=== PATIENT | male | born 1975 | race Hispanic/Latino ===

== ENCOUNTER → 2019-03-15 | Outpatient (CLI) | payer BC | END | disposition home or self-care (01) | LOC: RAH 10:47 | PROVIDERS: ATTEND Internal Medicine | DX: M54.5 Low back pain (principal) | CPT/HCPCS: 72100 ==

== ENCOUNTER 2019-08-06 11:49 | Inpatient (IN) | payer BC ==
[~2019-08-06] VITALS: Ht 172.7 cm; Wt 106.4 kg
[2019-08-06 12:14] LABS: BASOPHILS % (AUTO) 0.6 % (0.0-5.0); EOSINOPHILS % (AUTO) 1.9 % (0.0-8.0); HEMATOCRIT 26.7 % (42-54); LYMPHOCYTES % (AUTO) 40.4 % (21.0-51.0); MEAN CORPUSCULAR HEMOGLOBIN 19.6 pg (27.0-33.0); MEAN CORPUSCULAR HGB CONC 29.2 g/dL (32.0-36.0); MEAN CORPUSCULAR VOLUME 67.1 fL (79-99); MONOCYTES % (AUTO) 8.7 % (3.0-13.0); PLATELET COUNT (AUTO) 310 K/uL (130-400); RED BLOOD CELL COUNT(AUTO) 3.98 MIL/uL (4.50-6.20); RED CELL DISTRIBUTION WIDTH 18.4 % (11.0-15.5); WHITE BLOOD COUNT (AUTO) 4.7 K/uL (4.8-10.8)
[2019-08-06 12:22] LABS: CREATININE 1.1 mg/dL (0.5-1.5); POTASSIUM 3.4 mmol/L (3.5-5.1)
[2019-08-06 12:29] LABS: ALBUMIN 3.8 g/dL (3.5-5.0); BILIRUBIN,TOTAL 0.3 mg/dL (0.2-1.0); TOTAL PROTEIN, SERUM 7.1 g/dL (6.0-8.3)
[2019-08-06 12:46] LABS: INR 1.01 (0.85-1.15); PARTIAL THROMBOPLASTIN TIME 25.3 SEC (26.3-35.5); PROTHROMBIN TIME 10.9 SEC (9.6-11.6)
[2019-08-06] MEDS ORDERED: IBUPROFEN 200 MG TAB ONE (13:15)
[2019-08-06 13:34] LABS: ALBUMIN 3.9 g/dL (3.5-5.0); BILIRUBIN,DIRECT 0.1 mg/dL (0.0-0.3); BILIRUBIN,TOTAL 0.2 mg/dL (0.2-1.0); TOTAL PROTEIN, SERUM 6.8 g/dL (6.0-8.3)
[2019-08-06] MEDS ORDERED: ACETAMINOPHEN 325 MG TAB PO PRN ×2 (14:00)
[2019-08-06] MEDS ORDERED: ONDANSETRON HCL 4 MG/2 ML VIAL IV PRN (14:00)
[2019-08-06] MEDS ORDERED: HYDRALAZINE HCL 20 MG/ML VIAL IV PRN (14:00)
[2019-08-06] MEDS ORDERED: MORPHINE SULFATE 2 MG/ML 1ML SYG IV PRN (14:00)
[2019-08-06 14:24] LABS: % IRON SATURATION 3.1 % (30-44)
[2019-08-06] MEDS ORDERED: LIDOCAINE HCL-MPF 1% 2ML VIAL IV PRN (14:30)
[2019-08-06] MEDS ORDERED: POTASSIUM CHLORIDE 20 MEQ ERTAB PO PRN (14:30)
[2019-08-06] MEDS ORDERED: POTASSIUM CHLORIDE 10% ELIXIR 20 MEQ/15 ML UDCUP PO PRN (14:30)
[2019-08-06] MEDS ORDERED: POTASSIUM CHLORIDE 10MEQ/100ML 100 ML IV PRN (14:30)
[2019-08-06] MEDS ORDERED: POTASSIUM CHLORIDE 20 MEQ ERTAB PO ONE (15:32)
[2019-08-06] MEDS ORDERED: SODIUM CHLORIDE 0.9% 1000ML 1,000 ML IV ONE (15:33)
[2019-08-06] MEDS ORDERED: COMPOUND IV MISC 1 EACH IVSOLN MISC PRN (17:30)
[2019-08-06] MEDS ORDERED: EPOETIN ALFA 10,000 UNIT/ML VIAL SQ SCH (18:00)
[2019-08-06 18:38] VITALS: BP 139/70
[2019-08-06 19:08] VITALS: BP 127/72
[2019-08-06] MEDS: SODIUM CHLORIDE 0.9% 1000ML 1,000 ML IV SCH (20:03)
[2019-08-06] MEDS ORDERED: OMEP20TA25 PO (20:04)
[2019-08-06] MEDS ORDERED: HYDR200T82 PO (20:04)
[2019-08-06] MEDS ORDERED: ESCI20TA PO (20:04)
[2019-08-06] MEDS ORDERED: ICOS1CAP PO (20:04)
[2019-08-06] MEDS ORDERED: SULF500T8 PO (20:04)
[2019-08-06] MEDS ORDERED: PREG75 PO (20:04)
[2019-08-06] MEDS ORDERED: PRAM0.258 PO (20:04)
[2019-08-06] MEDS ORDERED: AMLO-258 PO (20:04)
[2019-08-06] MEDS ORDERED: LISI40TA4 PO (20:04)
[2019-08-06] MEDS ORDERED: DEXA0.5T2 PO (20:04)
[2019-08-06] MEDS ORDERED: BUSP15 PO (20:04)
[2019-08-06] MEDS: IRON SUCROSE COMPLEX 100 MG in SODIUM CHLORIDE 0.9% 50 ML IV SCH (20:20)
[2019-08-06] MEDS ORDERED: FAMOTIDINE/PF 20 MG/2 ML VIAL IV SCH (21:00)
[2019-08-06 23:04] VITALS: BP 142/77
[2019-08-07] MEDS: SODIUM CHLORIDE 0.9% 1000ML 1,000 ML IV SCH (01:27)
[2019-08-07 03:48] VITALS: BP 139/70
--- NOTE | 2019-08-07 04:37 | NUR ---
BM Pt had an episode of bloody stools.
[2019-08-07 05:36] LABS: BASOPHILS % (AUTO) 0.2 % (0.0-5.0); EOSINOPHILS % (AUTO) 2.7 % (0.0-8.0); HEMATOCRIT 24.1 % (42-54); LYMPHOCYTES % (AUTO) 33.7 % (21.0-51.0); MEAN CORPUSCULAR HEMOGLOBIN 19.2 pg (27.0-33.0); MEAN CORPUSCULAR HGB CONC 28.2 g/dL (32.0-36.0); MEAN CORPUSCULAR VOLUME 68.1 fL (79-99); MONOCYTES % (AUTO) 9.6 % (3.0-13.0); NEUTROPHILS % (AUTO) 53.5 % (40.0-77.0); PLATELET COUNT (AUTO) 263 K/uL (130-400); RED BLOOD CELL COUNT(AUTO) 3.54 MIL/uL (4.50-6.20); RED CELL DISTRIBUTION WIDTH 18.5 % (11.0-15.5); WHITE BLOOD COUNT (AUTO) 5.8 K/uL (4.8-10.8)
[2019-08-07 06:03] LABS: ALBUMIN 3.4 g/dL (3.5-5.0); BILIRUBIN,TOTAL 0.2 mg/dL (0.2-1.0); CREATININE 0.9 mg/dL (0.5-1.5); POTASSIUM 3.6 mmol/L (3.5-5.1); TOTAL PROTEIN, SERUM 6.3 g/dL (6.0-8.3)
--- NOTE | 2019-08-07 06:34 | NUR ---
LAB avionics test technician here to draw type and screen.
[2019-08-07 08:00] VITALS: BP 118/74
[2019-08-07] MEDS ORDERED: PANTOPRAZOLE SODIUM 80 MG in SODIUM CHLORIDE 0.9% 100 ML IV SCH (09:00)
--- NOTE | 2019-08-07 09:47 | NUR ---
i informed ashlee hyde that lab stated pt blood type O- but due to shortage they are going to issue O+ ; she stated to not give at this time and instead repeat H&H and call her with result.
[2019-08-07 10:09] LABS: HEMATOCRIT 24.1 % (42-54)
[2019-08-07] MEDS ORDERED: SODIUM CHLORIDE 0.9% 1000ML 1,000 ML IV SCH (10:15)
[2019-08-07] MEDS ORDERED: METHYLPREDNISOLONE SOD SUCC 125MG/2ML VIAL IVP SCH (10:15)
[2019-08-07] MEDS: IRON SUCROSE COMPLEX 100 MG in SODIUM CHLORIDE 0.9% 50 ML IV SCH (11:26)
--- NOTE | 2019-08-07 11:35 | NUR ---
i spoke to ashlee hyde on the phone and informed her of H&H recheck of 6.9/24.1; i also informed her that pt denies any light headedness or dizzyness at this time; she stated to not give the blood yet and cont to monitor.
--- NOTE | 2019-08-07 11:50 | NUR ---
INITIAL SW spoke with patient. Patient lives with spouse, [address], [phone]. No home services. DME: CPAP. 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 He is able to drive and complete ADL's independently. PCP is Dr. Kamran Drew. Pharmacy is [email or web address] located on [facility] in [place]. DCP is home. Addendum: 08/07/19 at 1152 by LAI LIU SS Amended: Links added.
[2019-08-07 12:00] VITALS: BP 108/69
[2019-08-07] MEDS ORDERED: DEXTROSE 50%-WATER 50 ML DISP.SYRIN IV ONE (12:05)
[2019-08-07 16:00] VITALS: BP 118/75
--- NOTE | 2019-08-07 16:29 | NUR ---
i spoke to dr Marquez about blood transfusion and giving O+ to O - patient and she stated to hold off on giving now and she would speak to her colleagues about treatment and to monitor the H&H in the meantime.
--- NOTE | 2019-08-07 16:53 | NUR ---
i spoke to dr richter on the phone and informed of negative bleeding scan; he stated to order edg and colonoscopy for tomorrow;
[2019-08-07] MEDS ORDERED: PEG 3350/NA SULF,BICARB,CL/KCL 4000 ML SOLN PO SCH (17:00)
[2019-08-07 19:00] VITALS: BP 119/68
[2019-08-07 19:55] LABS: HEMATOCRIT 24.7 % (42-54)
[2019-08-07] MEDS: BUSPIRONE HCL 5 MG TABLET PO SCH (20:57)
[2019-08-07] MEDS: PREGABALIN 75 MG CAPSULE PO SCH (20:58)
[2019-08-07] MEDS: SULFASALAZINE 500 MG TAB.DR PO SCH (20:58)
[2019-08-07] MEDS: HYDROXYCHLOROQUINE SULFATE 200 MG TAB PO SCH (20:58)
[2019-08-07] MEDS: PRAMIPEXOLE DI-HCL 0.25 MG TABLET PO SCH (20:59)
[2019-08-07] MEDS: AMLODIPINE BESYLATE 5 MG TAB PO SCH (21:00)
[2019-08-08] VITALS (21 sets, daily range): BP systolic 98–145; BP diastolic 52–83
--- NOTE | 2019-08-08 02:00 | NUR ---
patient is noncompliant with the goleytly and refuses to drink it all.
--- NOTE | 2019-08-08 02:25 | NUR ---
patient had a bright red bowel movement, but is asymptomatic with normal vital signs. spoke to warehouse handler, Josephine, about patient's inability to receive o+ blood because his blood type is o-. she says to wait for labs in the morning.
[2019-08-08 04:19] LABS: BASOPHILS % (AUTO) 0.3 % (0.0-5.0); EOSINOPHILS % (AUTO) 0.1 % (0.0-8.0); HEMATOCRIT 23.2 % (42-54); LYMPHOCYTES % (AUTO) 22.5 % (21.0-51.0); MEAN CORPUSCULAR HEMOGLOBIN 19.6 pg (27.0-33.0); MEAN CORPUSCULAR HGB CONC 28.9 g/dL (32.0-36.0); MEAN CORPUSCULAR VOLUME 67.8 fL (79-99); MONOCYTES % (AUTO) 8.9 % (3.0-13.0); NEUTROPHILS % (AUTO) 66.9 % (40.0-77.0); NUCLEATED RED BLOOD CELLS 0.6 % (0.0-0.19); PLATELET COUNT (AUTO) 311 K/uL (130-400); RED BLOOD CELL COUNT(AUTO) 3.42 MIL/uL (4.50-6.20); RED CELL DISTRIBUTION WIDTH 18.6 % (11.0-15.5); WHITE BLOOD COUNT (AUTO) 7.8 K/uL (4.8-10.8)
--- NOTE | 2019-08-08 04:34 | NUR ---
spoke with bk pretty about patient's hemoglobin of 6.7 and the availability of o+ blood in the laboratory. she says to communicate this to the doctor in the morning and to not give any blood for now since patient is asymptomatic and vitals are heart rate of 96, blood pressure of 120/59. respirations of 20, and oxygen saturation of 100.
[2019-08-08 04:44] LABS: ALBUMIN 3.5 g/dL (3.5-5.0); BILIRUBIN,TOTAL 0.2 mg/dL (0.2-1.0); CREATININE 0.8 mg/dL (0.5-1.5); POTASSIUM 3.7 mmol/L (3.5-5.1); TOTAL PROTEIN, SERUM 6.4 g/dL (6.0-8.3)
[2019-08-08] MEDS ORDERED: PROPOFOL 10 MG/ML 20ML VIAL IV ONE ×2 (08:04)
[2019-08-08] MEDS: SULFASALAZINE 500 MG TAB.DR PO SCH ×2 (09:54→23:31)
[2019-08-08] MEDS: AMLODIPINE BESYLATE 5 MG TAB PO SCH ×2 (09:54→23:33)
[2019-08-08] MEDS: BUSPIRONE HCL 5 MG TABLET PO SCH ×2 (09:55→23:32)
[2019-08-08] MEDS: PANTOPRAZOLE SODIUM 40 MG TABLET.DR PO SCH (09:55)
[2019-08-08] MEDS: LISINOPRIL 40 MG TABLET PO SCH (09:56)
[2019-08-08] MEDS: CITALOPRAM 20 MG TABLET PO SCH (09:56)
[2019-08-08] MEDS: HYDROXYCHLOROQUINE SULFATE 200 MG TAB PO SCH ×2 (09:57→23:33)
[2019-08-08] MEDS ORDERED: SODIUM CHLORIDE 0.9% 250 ML IV ONE (10:32)
[2019-08-08] MEDS ORDERED: EPOETIN ALFA 10,000 UNIT/ML VIAL SQ SCH (11:00)
[2019-08-08] MEDS: IRON SUCROSE COMPLEX 100 MG in SODIUM CHLORIDE 0.9% 50 ML IV SCH (11:29)
[2019-08-08] MEDS: METHYLPREDNISOLONE SOD SUCC 40MG/ML 1ML IVP SCH ×2 (12:18→19:18)
--- NOTE | 2019-08-08 13:10 | NUR ---
i spoke with dr richter on the phone and he stated pt does not need a colonoscopy, that the problem is internal hemroids and ordered to give hydrocortizone pr; he stated to give blood to treat current anemia and then f/u at his office as outpatient
[2019-08-08] MEDS ORDERED: HYDROCORTISONE 25 MG SUPPOSITORY PR SCH (14:15)
[2019-08-08 15:56] LABS: HEMATOCRIT 24.9 % (42-54)
[2019-08-08] MEDS: HYDROCORTISONE 25 MG SUPPOSITORY PR SCH (23:31)
[2019-08-08] MEDS: PREGABALIN 75 MG CAPSULE PO SCH (23:32)
[2019-08-08] MEDS: PRAMIPEXOLE DI-HCL 0.25 MG TABLET PO SCH (23:32)
[2019-08-09] MEDS: METHYLPREDNISOLONE SOD SUCC 40MG/ML 1ML IVP SCH ×2 (03:01→08:44)
[2019-08-09 03:41] VITALS: BP 111/66
[2019-08-09 04:31] LABS: BASOPHILS % (AUTO) 0.3 % (0.0-5.0); HEMATOCRIT 24.8 % (42-54); MEAN CORPUSCULAR HEMOGLOBIN 20.5 pg (27.0-33.0); MEAN CORPUSCULAR HGB CONC 29.4 g/dL (32.0-36.0); MEAN CORPUSCULAR VOLUME 69.7 fL (79-99); MONOCYTES % (AUTO) 5.1 % (3.0-13.0); NEUTROPHILS % (AUTO) 73.5 % (40.0-77.0); NUCLEATED RED BLOOD CELLS 1.7 % (0.0-0.19); PLATELET COUNT (AUTO) 317 K/uL (130-400); RED BLOOD CELL COUNT(AUTO) 3.56 MIL/uL (4.50-6.20); WHITE BLOOD COUNT (AUTO) 10.3 K/uL (4.8-10.8)
[2019-08-09 04:46] LABS: ALBUMIN 3.7 g/dL (3.5-5.0); BILIRUBIN,TOTAL 0.2 mg/dL (0.2-1.0); CREATININE 0.9 mg/dL (0.5-1.5); POTASSIUM 4.2 mmol/L (3.5-5.1); TOTAL PROTEIN, SERUM 6.6 g/dL (6.0-8.3)
--- NOTE | 2019-08-09 05:57 | NUR ---
hgb: 7.3 Reported to on-call hospitalist. no new order.
[2019-08-09 08:00] VITALS: BP 122/85
[2019-08-09] MEDS: IRON SUCROSE COMPLEX 100 MG in SODIUM CHLORIDE 0.9% 50 ML IV SCH (08:43)
[2019-08-09] MEDS: HYDROCORTISONE 25 MG SUPPOSITORY PR SCH (08:44)
[2019-08-09] MEDS: BUSPIRONE HCL 5 MG TABLET PO SCH (08:44)
[2019-08-09] MEDS: HYDROXYCHLOROQUINE SULFATE 200 MG TAB PO SCH (08:44)
[2019-08-09] MEDS: LISINOPRIL 40 MG TABLET PO SCH (08:44)
[2019-08-09] MEDS: PANTOPRAZOLE SODIUM 40 MG TABLET.DR PO SCH (08:44)
[2019-08-09] MEDS: SULFASALAZINE 500 MG TAB.DR PO SCH (08:44)
[2019-08-09] MEDS: AMLODIPINE BESYLATE 5 MG TAB PO SCH (08:44)
[2019-08-09] MEDS: CITALOPRAM 20 MG TABLET PO SCH (08:44)
[2019-08-09 11:34] VITALS: BP 112/58
[2019-08-09] MEDS ORDERED: SODIUM CHLORIDE 0.9% 50 ML IV ONE (12:55)
[2019-08-09] MEDS ORDERED: FERS325 PO (15:27)
[2019-08-09] MEDS ORDERED: HYDR25SU11 PR (15:27)
[2019-08-09] MEDS ORDERED: FOLI0.8C PO (15:27)
[2019-08-09] MEDS ORDERED: MECO10005 PO (15:27)
[2019-08-09 16:00] VITALS: BP 104/59
== END 2019-08-09 17:35 | disposition home or self-care (01) | DRG 394 ==
LOC: EDH 11:49 → EDHIP 13:49 → 3AH 16:45
PROVIDERS: ADMIT Internal Medicine; ATTEND Internal Medicine
PROC: 30233N1 Transfusion of Nonautologous Red Blood Cells into Peripheral Vein, Percutaneous Approach (ICD-10-PCS; principal; 2019-08-07)
PROC: 0DB68ZX Excision of Stomach, Via Natural or Artificial Opening Endoscopic, Diagnostic (ICD-10-PCS; 2019-08-08)
PROC: 0DJD8ZZ Inspection of Lower Intestinal Tract, Via Natural or Artificial Opening Endoscopic (ICD-10-PCS; 2019-08-08)
DX: K64.2 Third degree hemorrhoids (principal); D62 Acute posthemorrhagic anemia; K92.1 Melena; E87.6 Hypokalemia; F41.9 Anxiety disorder, unspecified; M06.9 Rheumatoid arthritis, unspecified; K31.89 Other diseases of stomach and duodenum; D50.9 Iron deficiency anemia, unspecified; I10 Essential (primary) hypertension; E66.9 Obesity, unspecified; Z68.36 Body mass index [BMI] 36.0-36.9, adult; Z83.3 Family history of diabetes mellitus; Z83.2 Family history of diseases of the blood and blood-forming organs and certain disorders involving the immune mechanism; Z79.899 Other long term (current) drug therapy
CPT/HCPCS: 36415; 36430; 71045; 74176; 78278; 80053; 80076; 83540; 83550; 85014; 85018; 85025; 85610; 85730; 86850; 86900; 86901; 86922; 93005; A4606; A9512; C9113; G0378; J0885; J1756; J2704; J2920; J2930; J3490; J7030; J7050; J7070; P9016

== ENCOUNTER 2019-08-15 12:09 | Inpatient (IN) | payer BC ==
[~2019-08-15] VITALS: Ht 172.7 cm; Wt 103.1 kg
[~2019-08-15 12:09] MED LIST: AMLO-258 PO; BUSP15 PO; DEXA0.5T2 PO; ESCI20TA PO; FERS325 PO; FOLI0.8C PO; HYDR200T82 PO; HYDR25SU11 PR; ICOS1CAP PO; LISI40TA4 PO; MECO10005 PO; OMEP20TA25 PO; PRAM0.258 PO; PREG75 PO; SULF500T8 PO
[2019-08-15 12:41] LABS: BASOPHILS % (AUTO) 0.4 % (0.0-5.0); EOSINOPHILS % (AUTO) 2.3 % (0.0-8.0); HEMATOCRIT 21.8 % (42-54); LYMPHOCYTES % (AUTO) 21.8 % (21.0-51.0); MEAN CORPUSCULAR HEMOGLOBIN 21.8 pg (27.0-33.0); MEAN CORPUSCULAR HGB CONC 28.9 g/dL (32.0-36.0); MEAN CORPUSCULAR VOLUME 75.4 fL (79-99); MONOCYTES % (AUTO) 9.1 % (3.0-13.0); NEUTROPHILS % (AUTO) 65.4 % (40.0-77.0); NUCLEATED RED BLOOD CELLS 0.4 % (0.0-0.19); PLATELET COUNT (AUTO) 277 K/uL (130-400); RED BLOOD CELL COUNT(AUTO) 2.89 MIL/uL (4.50-6.20); RED CELL DISTRIBUTION WIDTH 24.3 % (11.0-15.5); WHITE BLOOD COUNT (AUTO) 4.8 K/uL (4.8-10.8)
[2019-08-15 12:50] LABS: CREATININE 0.9 mg/dL (0.5-1.5); POTASSIUM 3.7 mmol/L (3.5-5.1)
[2019-08-15 12:54] LABS: INR 0.94 (0.85-1.15); PARTIAL THROMBOPLASTIN TIME 23.2 SEC (26.3-35.5); PROTHROMBIN TIME 10.2 SEC (9.6-11.6)
[2019-08-15 14:18] LABS: APPEARANCE,URINE Clear (CLEAR); BILIRUBIN,URINE Negative (NEGATIVE); COLOR,URINE Dark Yellow (YELLOW); GLUCOSE, URINE (UA) Negative (NEGATIVE); KETONES,URINE Negative (NEGATIVE); LEUKOCYTE ESTERASE ,URINE Negative (NEGATIVE); NITRATE,URINE Negative (NEGATIVE); OCCULT BLOOD,URINE Negative (NEGATIVE); PROTEIN,URINE Negative (NEGATIVE); UROBILINOGEN,URINE 0.2 mg/dL (0.2-1.0)
[2019-08-15] MEDS ORDERED: ONDANSETRON HCL 4 MG/2 ML VIAL IV PRN (16:15)
[2019-08-15] MEDS ORDERED: ACETAMINOPHEN 325 MG TAB PO PRN ×2 (16:15)
[2019-08-15] MEDS ORDERED: LIDOCAINE HCL 1% 20 ML VIAL ONE (17:49)
[2019-08-15 20:14] VITALS: BP 122/81
[2019-08-15] MEDS: HYDROCORTISONE 25 MG SUPPOSITORY PR SCH (21:00)
[2019-08-15] MEDS: PANTOPRAZOLE SODIUM 80 MG in SODIUM CHLORIDE 0.9% 100 ML IV SCH (21:00)
[2019-08-15] MEDS: LACTATED RINGERS 1000ML 1,000 ML IV SCH (21:00)
[2019-08-15 23:03] VITALS: BP 125/66
[2019-08-16] VITALS (17 sets, daily range): BP systolic 106–128; BP diastolic 64–82
[2019-08-16 04:10] LABS: BASOPHILS % (AUTO) 0.3 % (0.0-5.0); EOSINOPHILS % (AUTO) 1.7 % (0.0-8.0); LYMPHOCYTES % (AUTO) 29.5 % (21.0-51.0); MEAN CORPUSCULAR HEMOGLOBIN 21.7 pg (27.0-33.0); MEAN CORPUSCULAR HGB CONC 29.3 g/dL (32.0-36.0); MEAN CORPUSCULAR VOLUME 74.3 fL (79-99); MONOCYTES % (AUTO) 8.5 % (3.0-13.0); NEUTROPHILS % (AUTO) 59.2 % (40.0-77.0); NUCLEATED RED BLOOD CELLS 0.5 % (0.0-0.19); PLATELET COUNT (AUTO) 267 K/uL (130-400); RED BLOOD CELL COUNT(AUTO) 2.76 MIL/uL (4.50-6.20); RED CELL DISTRIBUTION WIDTH 24.4 % (11.0-15.5); WHITE BLOOD COUNT (AUTO) 6.3 K/uL (4.8-10.8)
[2019-08-16 04:12] LABS: HEMATOCRIT 20.5 % (42-54)
[2019-08-16] MEDS ORDERED: PROPOFOL 10 MG/ML 20ML VIAL IV ONE (10:14)
[2019-08-16] MEDS: HYDROCORTISONE 25 MG SUPPOSITORY PR SCH ×2 (11:21→20:31)
[2019-08-16 14:24] LABS: HEMATOCRIT 19.5 % (42-54)
--- NOTE | 2019-08-16 14:26 | NUR ---
INITIAL SW spoke with patient. He states he lives with spouse, [address], [phone]. No home services. DME: CPAP. Patient is able to complete ADL's independently and drives. 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 PCP is Dr. Kamran Drew. Pharmacy is [facility] located on [facility] in [place]. DCP is home. Addendum: 08/16/19 at 1428 by LAI LIU SS Amended: Links added.
[2019-08-16] MEDS: LACTATED RINGERS 1000ML 1,000 ML IV SCH ×2 (19:25→20:31)
--- NOTE | 2019-08-16 19:57 | NUR ---
H/H HGB OF 5.7. AMERICA MCCRACKEN MADE AWARE OF RESULT. NO BLOOD TRANSFUSION AT THIS TIME. Addendum: 08/16/19 at 1999 by CHRISTOPHE TURPIN RN RN PATIENT BP STABLE. NO SHORTNESS OF BREATH NOTED. NO SIGNS OF DISTRESS. PATIENT WILL BE CONTINUED TO BE MONITORED. STAT H/H ORDERED.
[2019-08-16] MEDS ORDERED: PHARMACY COMMUNICATION MISC SCH (20:00)
[2019-08-16] MEDS: EPOETIN ALFA 10,000 UNIT/ML VIAL SQ SCH (20:30)
[2019-08-16] MEDS ORDERED: [UNRECOGNIZED DRUG - OTHER] IVP SCH (21:00)
[2019-08-16] MEDS ORDERED: IRON SUCROSE COMPLEX IVP SCH (21:00)
--- NOTE | 2019-08-17 01:00 | NUR ---
SPOKE TO AJ GINGER FARMER REGARDING H/H. CANCELLED 0200 HH AND ORDERED CBC, BMP FOR 0400. NO TRANSFUSION UNLESS NECESSARY IF EMERGENT OR PT IS SYMPTOMATIC. NO O NEGATIVE BLOOD AVAILABLE, WOULD HAVE TO TRANSFUSE O POSITIVE WITH ANTIHISTAMINES AND STEROIDS.
[2019-08-17 03:49] VITALS: BP 133/73
[2019-08-17 04:55] LABS: MEAN CORPUSCULAR HEMOGLOBIN 21.8 pg (27.0-33.0); MEAN CORPUSCULAR HGB CONC 29.2 g/dL (32.0-36.0); MEAN CORPUSCULAR VOLUME 74.7 fL (79-99); NUCLEATED RED BLOOD CELLS 1.1 % (0.0-0.19); PLATELET COUNT (AUTO) 268 K/uL (130-400); RED BLOOD CELL COUNT(AUTO) 2.57 MIL/uL (4.50-6.20); RED CELL DISTRIBUTION WIDTH 23.9 % (11.0-15.5); WHITE BLOOD COUNT (AUTO) 5.3 K/uL (4.8-10.8)
[2019-08-17 04:58] LABS: HEMATOCRIT 19.2 % (42-54)
[2019-08-17 05:02] LABS: CREATININE 0.8 mg/dL (0.5-1.5); POTASSIUM 3.9 mmol/L (3.5-5.1)
[2019-08-17 05:06] LABS: LYMPHOCYTES % (MANUAL) 44 % (22-44); MAN.DIFF COMMENT-IMPRESSION MANUAL DIFFERENTIAL; MONOCYTES % (MANUAL) 8 % (2-9); PLATELET MORPHOLOGY COMMENT ADEQUATE; SEGMENTED NEUTROPHILS % 48 % (40-70)
[2019-08-17 07:12] VITALS: BP 120/67
[2019-08-17] MEDS: LACTATED RINGERS 1000ML 1,000 ML IV SCH ×2 (08:45→22:05)
[2019-08-17] MEDS: PANTOPRAZOLE SODIUM 80 MG in SODIUM CHLORIDE 0.9% 100 ML IV SCH (09:00)
[2019-08-17] MEDS: HYDROCORTISONE 25 MG SUPPOSITORY PR SCH ×2 (10:08→21:19)
[2019-08-17 11:11] VITALS: BP 136/74
[2019-08-17] MEDS ORDERED: COMPOUND IV MISC 1 EACH IVSOLN MISC PRN (12:15)
[2019-08-17 15:24] VITALS: BP 127/65
[2019-08-17 15:43] LABS: HEMATOCRIT 20.9 % (42-54)
[2019-08-17] MEDS: IRON SUCROSE COMPLEX 100 MG in SODIUM CHLORIDE 0.9% 50 ML IV SCH (15:50)
[2019-08-17 19:10] VITALS: BP 122/58
[2019-08-17] MEDS: EPOETIN ALFA 10,000 UNIT/ML VIAL SQ SCH (20:00)
[2019-08-17 23:41] VITALS: BP 132/65
--- NOTE | 2019-08-18 | NUR ---
PT'S HG HAS STARTED TRENDING UP SLOWLY. NO DISTRESS NOTED. MINIMAL WEAKNESS AND SOB AT TIMES WHEN AMBULATING. PT IN ROOM AIR. WILL CONTINUE TO MONITOR.
[2019-08-18 04:08] LABS: CREATININE 0.9 mg/dL (0.5-1.5); POTASSIUM 3.9 mmol/L (3.5-5.1)
[2019-08-18 04:18] LABS: BASOPHILS % (AUTO) 0.7 % (0.0-5.0); EOSINOPHILS % (AUTO) 2.3 % (0.0-8.0); HEMATOCRIT 21.2 % (42-54); LYMPHOCYTES % (AUTO) 33.5 % (21.0-51.0); MEAN CORPUSCULAR HEMOGLOBIN 21.8 pg (27.0-33.0); MEAN CORPUSCULAR HGB CONC 28.8 g/dL (32.0-36.0); MEAN CORPUSCULAR VOLUME 75.7 fL (79-99); MONOCYTES % (AUTO) 8.4 % (3.0-13.0); NEUTROPHILS % (AUTO) 52.8 % (40.0-77.0); PLATELET COUNT (AUTO) 327 K/uL (130-400); RED CELL DISTRIBUTION WIDTH 24.4 % (11.0-15.5); WHITE BLOOD COUNT (AUTO) 6.1 K/uL (4.8-10.8)
[2019-08-18 05:00] VITALS: BP 134/65
[2019-08-18] MEDS ORDERED: IRON SUCROSE COMPLEX 300 MG in SODIUM CHLORIDE 0.9% 50 ML IV ONE (06:00)
[2019-08-18] MEDS: LACTATED RINGERS 1000ML 1,000 ML IV SCH (06:39)
[2019-08-18 07:31] VITALS: BP 119/65
[2019-08-18] MEDS: HYDROCORTISONE 25 MG SUPPOSITORY PR SCH ×2 (08:46→21:53)
[2019-08-18] MEDS: IRON SUCROSE COMPLEX 100 MG in SODIUM CHLORIDE 0.9% 50 ML IV SCH (08:46)
[2019-08-18 11:00] VITALS: BP 120/57
[2019-08-18 16:00] VITALS: BP 110/66
[2019-08-18 20:00] VITALS: BP 134/69
[2019-08-18 23:51] VITALS: BP 117/62
[2019-08-19 03:55] VITALS: BP 123/78
[2019-08-19 05:59] LABS: BASOPHILS % (AUTO) 0.6 % (0.0-5.0); EOSINOPHILS % (AUTO) 2.2 % (0.0-8.0); HEMATOCRIT 21.9 % (42-54); LYMPHOCYTES % (AUTO) 26.6 % (21.0-51.0); MEAN CORPUSCULAR HEMOGLOBIN 21.8 pg (27.0-33.0); MEAN CORPUSCULAR HGB CONC 27.9 g/dL (32.0-36.0); MEAN CORPUSCULAR VOLUME 78.2 fL (79-99); MONOCYTES % (AUTO) 10.7 % (3.0-13.0); NEUTROPHILS % (AUTO) 57.2 % (40.0-77.0); NUCLEATED RED BLOOD CELLS 2.7 % (0.0-0.19); PLATELET COUNT (AUTO) 311 K/uL (130-400); RED CELL DISTRIBUTION WIDTH 25.7 % (11.0-15.5); WHITE BLOOD COUNT (AUTO) 6.8 K/uL (4.8-10.8)
[2019-08-19] MEDS ORDERED: IRON SUCROSE COMPLEX 300 MG in SODIUM CHLORIDE 0.9% 50 ML IV ONE (06:00)
[2019-08-19 06:12] LABS: POTASSIUM 3.9 mmol/L (3.5-5.1)
[2019-08-19 07:26] VITALS: BP 118/60
[2019-08-19] MEDS: IRON SUCROSE COMPLEX 100 MG in SODIUM CHLORIDE 0.9% 50 ML IV SCH (09:00)
[2019-08-19] MEDS: HYDROCORTISONE 25 MG SUPPOSITORY PR SCH (09:06)
[2019-08-19 10:42] VITALS: BP 126/61
--- NOTE | 2019-08-19 11:46 | NUR ---
CHART REVIEWED. ADVISED PATIENT WILL BE DISCHARGING TODAY. H/H STILL LOW- Addendum: 08/19/19 at 1148 by HONEY CAMPOS RN CM Amended: Links added.
[2019-08-19 15:44] VITALS: BP 133/74
--- NOTE | 2019-08-19 16:21 | NUR ---
PATIENT REQUEST TO GO AMA, SPOKE TO MARCELINO PIZARRO OVER THE PHONE. PATIENT STATES HE IS ASYMTOMATIC, HE SPOKE TO HIS HEALTH EDUCATION SPECIALIST AND HE HAS AN APPOINTMENT TO SEE HIM ON 08/21/19 AND HE KNOWS THAT HIS CONDITION IS CHRONIC
== END 2019-08-19 17:04 | disposition home or self-care (01) | DRG 378 ==
LOC: EDH 12:09 → EDHIP 16:53 → 2AH 19:42 → 3BH 08-18 18:40
PROVIDERS: ADMIT Internal Medicine; ATTEND Internal Medicine
PROC: 0DBN8ZZ Excision of Sigmoid Colon, Via Natural or Artificial Opening Endoscopic (ICD-10-PCS; principal; 2019-08-16)
DX: K92.2 Gastrointestinal hemorrhage, unspecified (principal); D62 Acute posthemorrhagic anemia; M06.9 Rheumatoid arthritis, unspecified; F41.9 Anxiety disorder, unspecified; K64.1 Second degree hemorrhoids; K63.5 Polyp of colon; I10 Essential (primary) hypertension; Z83.3 Family history of diabetes mellitus; Z83.2 Family history of diseases of the blood and blood-forming organs and certain disorders involving the immune mechanism
CPT/HCPCS: 36415; 45331; 80048; 81003; 85014; 85018; 85025; 85610; 85730; 86850; 86900; 86901; 86922; A4606; C9113; G0378; J0885; J1756; J2704; J7030; J7050; J7120

== ENCOUNTER 2022-06-24 10:59 | Emergency (ER) | payer BC, OTHER ==
[~2022-06-24] VITALS: Ht 172.7 cm; Wt 108.9 kg
[~2022-06-24 10:59] MED LIST changes: -LISI40TA4 PO; +LISI40TA9 PO; +OMEP20TA20 PO; -OMEP20TA25 PO
[2022-06-24 11:00] VITALS: BP 133/90
[2022-06-24 12:35] LABS: BASOPHILS % (AUTO) 0.9 % (0.0-5.0); EOSINOPHILS % (AUTO) 3.9 % (0.0-8.0); HEMATOCRIT 52.4 % (42-54); LYMPHOCYTES % (AUTO) 26.3 % (21.0-51.0); MEAN CORPUSCULAR HEMOGLOBIN 28.8 pg (27.0-33.0); MEAN CORPUSCULAR HGB CONC 34.5 g/dL (32.0-36.0); MEAN CORPUSCULAR VOLUME 83.3 fL (79-99); MONOCYTES % (AUTO) 11.4 % (3.0-13.0); NEUTROPHILS % (AUTO) 57.1 % (40.0-77.0); PLATELET COUNT (AUTO) 198 K/uL (130-400); RED BLOOD CELL COUNT(AUTO) 6.29 MIL/uL (4.50-6.20); RED CELL DISTRIBUTION WIDTH 13.2 % (11.0-15.5); WHITE BLOOD COUNT (AUTO) 5.4 K/uL (4.8-10.8)
[2022-06-24 12:51] LABS: CREATININE 1.1 mg/dL (0.5-1.5); POTASSIUM 3.7 mmol/L (3.5-5.1)
[2022-06-24 13:00] LABS: TOTAL PROTEIN, SERUM 7.6 g/dL (6.0-8.3)
== END 2022-06-24 17:08 | disposition left against medical advice (07) ==
LOC: EDH 10:59
DX: L02.412 Cutaneous abscess of left axilla (principal); M19.90 Unspecified osteoarthritis, unspecified site; I10 Essential (primary) hypertension; Z79.899 Other long term (current) drug therapy
CPT/HCPCS: 36415; 80053; 85025